=== PATIENT | female | born 2000 | race Caucasian/White ===

== ENCOUNTER 2019-03-30 16:13 | Emergency (ER) | payer SELFPAY | END 2019-03-30 16:57 | disposition left against medical advice (07) | LOC: ED 16:13 | DX: Z53.21 Procedure and treatment not carried out due to patient leaving prior to being seen by health care provider (principal) ==

== ENCOUNTER 2019-03-30 22:59 | Emergency (ER) | payer SELFPAY ==
[~2019-03-30] VITALS: Ht 165.1 cm; Wt 85.3 kg
[2019-03-30 23:03] VITALS: Ht 165.1 cm; Wt 85.3 kg
[2019-03-30 23:49] LABS: BASOPHIL % 0.4 % (0-2); PLATELET COUNT 307 x10^3mcL (130-400); RED CELL DISTRIBUTION WIDTH 12.6 % (11.5-14.5)
[2019-03-30 23:55] LABS: CARBON DIOXIDE 27.2 mmol/L (21-32); CHLORIDE SERUM 102 mmol/L (98-107); CREATININE SERUM 0.6 mg/dL (0.6-1.0); GFR1 > 60 mL/min; GLUCOSE SERUM 77 mg/dL (74-106); POTASSIUM SERUM 4.3 mmol/L (3.5-5.1); SODIUM SERUM 138 mmol/L (136-145)
[2019-03-30 23:59] LABS: ALBUMIN 3.5 g/dL (3.4-5.0); ALKALINE PHOSPHATASE 63 U/L (46-116); ALT/SGPT 21 U/L (14-59); AST/SGOT 16 U/L (15-37); BILIRUBIN TOTAL 0.5 mg/dL (0.20-1.00); TOTAL PROTEIN, SERUM 7.6 g/dL (6.4-8.2)
[2019-03-31 01:26] VITALS: BP 116/80
== END 2019-03-31 01:26 | disposition home or self-care (01) ==
LOC: ED 22:59
PROVIDERS: Emergency Medicine
DX: O20.0 Threatened abortion (principal)
CPT/HCPCS: 36415; Q0092